=== PATIENT | female | born 1940 | race Caucasian/White ===

== ENCOUNTER 2020-03-26 11:11 | Outpatient (CLI) | payer MEDICARE, MEDICAID, SELFPAY ==
[2020-03-26 11:42] VITALS: O2SAT 93; O2SAT 96
--- NOTE | 2020-03-26 13:35 | PFTS_ITS ---
Date of Study:03/26/20 Date of Dictation: MECHANICS: Forced vital capacity (FVC) is reduced. Forced expiratory volume in one second (FEV1) is reduced. FEV1/FVC is normal. FLOW VOLUME LOOP: Narrow with evidence of scooping. LUNG VOLUMES: Total lung capacity (TLC) is reduced. Residual volume (RV) is normal. DIFFUSING CAPACITY FOR CARBON MONOXIDE: Normal. INTERPRETATION: The pulmonary function tests are consistent with mild restriction. There is significant postbronchodilator response. Total lung capacity is mildly diminished. Gas exchange (DLCO) is normal. MTDD
== END 2020-03-26 11:12 | disposition home or self-care (01) ==
LOC: RT 11:20
PROVIDERS: PCP Nurse Practitioner Family; Visit Provider Internal Medicine Critical Care Medicine
DX: R06.02 Shortness of breath (principal)
CPT/HCPCS: 94060; 94726; 94729; J7611

== ENCOUNTER 2023-02-07 14:46 | Outpatient (CLI) | payer OTHER, MEDICAID, SELFPAY ==
--- NOTE | 2023-02-07 14:55 | MR_ITS ---
WS: [id number] MRI BRAIN WITH HIGH-RESOLUTION IMAGING THROUGH THE INTERNAL AUDITORY CANALS WITHOUT AND WITH CONTRAST HISTORY: SENSORINEURAL HEARING LOSS,BILATERAL COMPARISON: None available. TECHNIQUE: Multiplanar, multisequence imaging is performed through the brain. Additional 3 mm imaging performed in multiple planes through the internal auditory canal. Postcontrast imaging with 20 ml's of MultiHance. No acute intracranial hemorrhage, midline shift, edema or mass effect. Mild atrophy in the cerebrum and cerebellum. Moderate small vessel ischemic type changes within the w toni matter. Both periventricular and subcortical white matter lesions. Bilateral increased T2 signal and FLAIR signal in the jase. No prior large territory infarct. Ventricles and extra-axial spaces are normal. No inferior displacement of cerebellar tonsils. Clivus and pituitary gland are normal. Internal and external auditory canals: Unremarkable. Cranial nerves VII and VIII complexes: Unremarkable. No enhancement or mass. Cerebellopontine angles: Normal. Paranasal sinuses: Normal. Mastoid air cells: Normal. Calvarium and scalp: Normal. Visualized tolowa dee-ni' of Le and dural venous sinuses demonstrate no abnormality. MR/MR iac's wo/w con* [id number] IMPRESSION: 1. No mass or abnormal enhancement at the cerebellopontine angles or internal auditory canals. 2. Moderate small vessel ischemic changes in the supratentorial white matter a nd also in the jase bilaterally. 3. No acute infarct or hemorrhage. 4. Mild atrophy.
[2023-02-07] MEDS: gadobenate dimeglumine 20 mL vial IV (15:16)
== END 2023-02-07 14:47 | disposition home or self-care (01) ==
PROVIDERS: PCP Nurse Practitioner Family; Visit Provider Specialist
DX: H90.3 Sensorineural hearing loss, bilateral (principal); G31.9 Degenerative disease of nervous system, unspecified
CPT/HCPCS: 70553; A9577